=== PATIENT | male | born 1945 | race Caucasian/White ===

== ENCOUNTER → 2016-10-03 | Outpatient (CLI) | payer OTHER | LOC: BHFA 13:00 | PROVIDERS: ATTEND Internal Medicine Cardiovascular Disease | DX: I48.91 Unspecified atrial fibrillation (principal); I10 Essential (primary) hypertension; I27.2 Other secondary pulmonary hypertension; E78.5 Hyperlipidemia, unspecified; Z95.2 Presence of prosthetic heart valve ==

== ENCOUNTER → 2017-11-10 | Outpatient (CLI) | payer OTHER | LOC: BHLMT 10:45 | PROVIDERS: ATTEND Internal Medicine Cardiovascular Disease | DX: I48.91 Unspecified atrial fibrillation (principal); I35.9 Nonrheumatic aortic valve disorder, unspecified; I27.21 Secondary pulmonary arterial hypertension | CPT/HCPCS: 93306-PO ==